=== PATIENT | female | born 1960 | race Caucasian/White ===

== ENCOUNTER → 2016-06-22 | Outpatient (REF) | payer BC ==
[~2016-06-22] MED LIST: 8 HO650T PO; AUGM875T27 PO; COUM2.5T11 PO; DOCU10CA PO; FISH1000 PO; FLAG500T PO; GLUC500C5 PO; HYDR-3713 PO; LORT5TAB PO; NAPR500T2 PO; OMEP40CA2 PO; PERCOCET PO; TRAM50TA2 PO; VITATAB11 PO; ZOFR20TA PO
[2016-06-22 12:18] LABS: ALBUMIN 3.8 GM/DL (3.2-5.2); ALBUMIN/GLOBULIN RATIO 1.19 (1.00-1.93); ALKALINE PHOSPHATASE 149 U/L (45-117); ALT/SGPT 31 U/L (12-78); ANION GAP 7 MEQ/L (8-16); AST/SGOT 17 U/L (15-37); BILIRUBIN,TOTAL 0.5 MG/DL (0.2-1.0); BLOOD UREA NITROGEN 25 MG/DL (7-18); CARBON DIOXIDE LEVEL 28 MEQ/L (21-32); CHLORIDE LEVEL 107 MEQ/L (98-107); CHOLESTEROL LEVEL 212 MG/DL (<200); CREATININE FOR GFR 0.75 MG/DL (0.55-1.02); GLOMERULAR FILTRATION RATE > 60.0 (>51); GLUCOSE, FASTING 144 MG/DL (70-105); POTASSIUM SERUM 4.6 MEQ/L (3.5-5.1); SODIUM LEVEL 142 MEQ/L (136-145); TRIGLYCERIDES LEVEL 190 MG/DL (<150)
[2016-06-22 12:34] LABS: BASO % 0.6 % (0.0-1.0); EOS # 0.1 K/mm3 (0.0-0.50); EOS % 1.8 % (0.0-3.0); LARGE UNSTAINED CELL # 0.1 K/mm3 (0.0-0.4); LARGE UNSTAINED CELL % 1.3 % (0.0-4.0); LYMPH # 1.8 K/mm3 (1.5-4.5); LYMPH % 30.7 % (24.0-44.0); MEAN CORPUSCULAR HEMOGLOBIN 29.3 pg (27.0-33.0); MEAN CORPUSCULAR HGB CONC 33.8 g/dl (32.0-36.5); MEAN CORPUSCULAR VOLUME 86.8 fl (80.0-96.0); MONO # 0.3 K/mm3 (0.0-0.8); MONO % 5.3 % (0.0-5.0); NEUTROPHILS # 3.4 K/mm3 (1.8-7.7); NEUTROPHILS % 60.3 % (36.0-66.0); PLATELET COUNT, AUTOMATED 237 k/mm3 (150-450); RED CELL DISTRIBUTION WIDTH 12.9 % (11.5-14.5); WHITE BLOOD COUNT 5.6 K/mm3 (4.0-10.0)
== END ==
LOC: M LABDRAW1 11:33
PROVIDERS: ATTEND Physician Assistant Medical
DX: K21.9 Gastro-esophageal reflux disease without esophagitis (principal); E78.4 Other hyperlipidemia; E55.9 Vitamin D deficiency, unspecified

== ENCOUNTER → 2016-07-21 | Outpatient (CLI) | payer BC ==
--- NOTE | 2016-07-21 14:18 | REP ---
DIGITAL DIAGNOSTIC BILATERAL MAMMOGRAPHY WITH CAD AND FOCUSED LEFT BREAST SONOGRAPHY: HISTORY: Left breast lump for the last 1-1/2 months with some tenderness 2-o'clock position 3 cm from the nipple. Comparison mammography is from March 14, 2015, January 01, 2014, and December 28, 2011. MAMMOGRAPHIC FINDINGS: A skin marker is affixed to the skin at the site of the palpable lump. Routine left breast views are augmented by magnified focal spot compression CC, MLO and true MLO views. These views demonstrate that breast parenchyma remains homogeneously and completely fat replaced bilaterally. No density or mass lesion is seen in the area of the palpable lump on the left or elsewhere on either side mammographically. No microcalcification or worrisome skin change is appreciated. No change from comparison mammography. SONOGRAPHIC FINDINGS: The left breast is scanned from 1-o'clock position to 3-o'clock position with the palpable lump at 2-o'clock position. Mildly heterogeneous fibroglandular background echotexture is seen. No cyst or mass is observed by ultrasound. No acoustic shadowing is seen. IMPRESSION: BIRADS category 1 negative bilateral breast imaging. This negative report should not dissuade one from biopsy of a palpable mass depending on its clinical characteristics. Clinical follow-up is recommended. BI-RADS/ACR category 1 mammogram. Negative. Routine annual screening mammography (for women over age 40). This mammogram was interpreted with the aid of an FDA-approved computer-aided detection system. The patient states she/he had a clinical breast exam in June 2016. The patient letter being requested is M2. Signed by Carlos Espana MD 07/21/2016 03:49 P
== END ==
LOC: M RAD 10:32
PROVIDERS: ATTEND Nurse Practitioner Family
DX: N63 Unspecified lump in breast (principal)
CPT/HCPCS: 76642; G0204

== ENCOUNTER → 2016-10-05 | Outpatient (CLI) | payer BC ==
[~2016-10-05] MED LIST changes: -8 HO650T PO; +8 HO650T2 PO; -AUGM875T27 PO; +AUGM875T28 PO; +COLA100C5 PO; +COUM1TAB17 PO; -COUM2.5T11 PO; +COUM2.5T17 PO; +DRIS50002 PO; -NAPR500T2 PO; +NAPR500T3 PO; +PERC5TAB12 PO; +TOLT1TAB; +TYLE500T78 PO
[2016-10-05 12:33] LABS: INR 0.94; MEAN CORPUSCULAR HEMOGLOBIN 30.1 pg (27.0-33.0); MEAN CORPUSCULAR HGB CONC 35.2 g/dl (32.0-36.5); MEAN CORPUSCULAR VOLUME 85.5 fl (80.0-96.0); WHITE BLOOD COUNT 6.6 K/mm3 (4.0-10.0)
--- NOTE | 2016-10-05 12:51 | REP ---
PA and lateral chest: Comparison is 11/20/2015. The lung sullivan are clear. The cardiac size is normal The linda, mediastinum, and bony thorax are unremarkable. Impression: Negative PA and lateral chest. There is no interval change. Signed by Ángel Alfaro MD 10/05/2016 12:42 P
[2016-10-05 13:17] LABS: ALBUMIN 4.2 GM/DL (3.2-5.2); ALBUMIN/GLOBULIN RATIO 1.27 (1.00-1.93); ALKALINE PHOSPHATASE 165 U/L (45-117); ALT/SGPT 43 U/L (12-78); ANION GAP 8 MEQ/L (8-16); AST/SGOT 18 U/L (15-37); BILIRUBIN,TOTAL 0.5 MG/DL (0.2-1.0); BLOOD UREA NITROGEN 19 MG/DL (7-18); CALCIUM LEVEL 10.5 MG/DL (8.5-10.1); CARBON DIOXIDE LEVEL 28 MEQ/L (21-32); CHLORIDE LEVEL 104 MEQ/L (98-107); CREATININE FOR GFR 0.88 MG/DL (0.55-1.02); GLOMERULAR FILTRATION RATE > 60.0 (>51); GLUCOSE, FASTING 85 MG/DL (70-105); POTASSIUM SERUM 4.4 MEQ/L (3.5-5.1); SODIUM LEVEL 140 MEQ/L (136-145); TOTAL PROTEIN 7.5 GM/DL (6.4-8.2)
--- NOTE | 2016-10-06 22:34 | ECGEPIP ---
Stationary ECG Study [facility] Test Date: 2016-10-05 Pat Name: NICA ZAPATA Department: Room: - Gender: F Beam Dyer Recessed Vat: SAMANTHA : 1960 Requested By: Fidencio Lyons Order Number: [id number] Reading MD: Raji Garduno Measurements Intervals [place] Rate: 59 P: 64 RI: 171 QRS: 2 QRSD: 115 T: 30 QT: 404 QTc: 401 Interpretive Statements SINUS BRADYCARDIA MODERATE INTRAVENTRICULAR CONDUCTION DELAY LAST TRACING ON 11/06/2015 AT 11:46:42, NO SIGNIFICANT CHANGES BUT SLOWER HEART RATE Electronically Signed On 10-06-2016 22:34:08 EDT by Raji Garduno
== END ==
LOC: M ADMPAT 10:20
PROVIDERS: ATTEND Orthopaedic Surgery
DX: M16.12 Unilateral primary osteoarthritis, left hip (principal)

== ENCOUNTER → 2016-10-12 | Outpatient (REF) | payer BC ==
[2016-10-12 20:32] LABS: ANION GAP 8 MEQ/L (8-16); BLOOD UREA NITROGEN 22 MG/DL (7-18); CALCIUM LEVEL 9.5 MG/DL (8.5-10.1); CARBON DIOXIDE LEVEL 28 MEQ/L (21-32); CHLORIDE LEVEL 108 MEQ/L (98-107); CREATININE FOR GFR 0.82 MG/DL (0.55-1.02); GLOMERULAR FILTRATION RATE > 60.0 (>51); GLUCOSE, FASTING 131 MG/DL (70-105); POTASSIUM SERUM 4.2 MEQ/L (3.5-5.1); SODIUM LEVEL 144 MEQ/L (136-145)
== END ==
LOC: M SFHCADAM 14:17
PROVIDERS: ATTEND Physician Assistant Medical
DX: Z01.818 Encounter for other preprocedural examination (principal)

== ENCOUNTER 2016-10-18 07:31 | Inpatient (IN) | payer BC ==
[2016-10-05 11:17] VITALS: BP 120/86
--- NOTE | 2016-10-15 10:46 | HPE ---
DATE OF ADMISSION: 10/18/2016 ATTENDING PHYSICIAN: Fidencio Lyons MD CHIEF COMPLAINT: Left hip pain and stiffness. HISTORY OF PRESENT ILLNESS: This is a pleasant 56-year-old female patient with progressively worsening left hip pain and stiffness. She has failed to improve with conservative management. She has had a prior right hip replacement that did well and she has elected for surgery for her left hip for her persistent symptoms. She has consented for a left total hip arthroplasty by Dr. Lyons. Medical optimization pending. ALLERGIES: No known drug allergies. CURRENT MEDICATIONS: - Lidoderm topical patch - tramadol 50 mg as needed for pain - naproxen 500 mg one tablet as needed. She will discontinue that 5 days prior to her surgery. - Prilosec 40 mg one tablet once per day - vitamin B complex - glucosamine - fish oil - Detrol 1 mg one tablet once per day MEDICAL HISTORY: Includes: 1. Symptomatic osteoarthritis of her left hip. 2. Gastric reflux disease. 3. Urinary incontinence. SURGICAL HISTORY: 1. She has had a . 2. Gallbladder removed. 3. A prior right total hip arthroplasty. FAMILY HISTORY: Heart disease, cancer, elevated cholesterol, diabetes, arthritis and thyroid disease. SOCIAL HISTORY: She does not smoke. She does not use alcohol. REVIEW OF SYSTEMS: Denies fever or chills. Denies chest pain, shortness of breath or cough. Denies difficulty breathing. Denies recent upper respiratory infection (URI) or urinary tract infection (UTI) symptoms. Denies nausea or vomiting, and has persistent pain in her left hip with weightbearing activities and activities of daily living. PHYSICAL EXAMINATION: Exam today reveals a well-nourished, well-developed alert female patient. She walks with a limp in gait, favoring the left side. She uses a cane for ambulation. Exam of the left hip reveals skin to be intact. No erythema, edema or ecchymosis. Irritability with left hip range of motion. Straight leg raise testing is negative. There is tenderness diffusely around the left hip. She is able to appreciate light touch in the left lower extremity. Neck is supple without adenopathy or JVD. Lungs are clear to auscultation without rales or wheeze. Heart regular rate and rhythm. Abdomen bowel sounds are present. Current vital signs: Blood pressure 124/82, pulse 80, respirations 16, temperature 98.6, weight 230 pounds, height 64 inches. LABORATORY DATA: WBC count of 6.6, RBC count of 4.6, hemoglobin 14.0, hematocrit 39.7, PT 12.6, INR 0.99, glucose 85, BUN 19, creatinine 0.88, sodium 140, potassium 4.4. Urine culture no growth. Nasal sinus culture normal joo. Sed rate of 24. UA urinalysis within normal limits. Chest x-ray no acute cardiopulmonary disease process noted. EKG sinus bradycardia. IMPRESSION: Symptomatic osteoarthritis of her left hip. PLAN: Consented for left total hip arthroplasty by Dr. Lyons.
[~2016-10-18] VITALS: Ht 162.6 cm; Wt 106.6 kg
[~2016-10-18 07:31] MED LIST changes: -COUM1TAB17 PO; -PERC5TAB12 PO; -TOLT1TAB; -TYLE500T78 PO
[2016-10-18] MEDS ORDERED: LR 1,000 ML IV SCH ×2 (07:45→12:45)
[2016-10-18] MEDS ORDERED: LR 1,000 ML IV ONE (07:45)
[2016-10-18] MEDS ORDERED: TYLE500T78 PO (08:11)
[2016-10-18] MEDS ORDERED: COUM1TAB17 PO (08:11)
[2016-10-18] MEDS ORDERED: TOLT1TAB (08:11)
[2016-10-18] MEDS ORDERED: fentaNYL 100 MCG/2 ML INJECTION (J3010) As Ordered ONE ×2 (09:28→11:04)
[2016-10-18] MEDS ORDERED: MIDAZOLAM INJ 2 MG/2 ML VIAL (J2250) As Ordered ONE ×2 (09:29→10:41)
[2016-10-18] MEDS ORDERED: ceFAZolin 1GM INJ (J0690) As Ordered ONE (09:43)
[2016-10-18] MEDS ORDERED: TRANEXAMIC ACID 100 MG/ML 10ML VIAL As Ordered ONE (09:43)
[2016-10-18] MEDS ORDERED: EPINEPHrine INJ 1 MG/ML 1ML AMP As Ordered ONE (09:44)
--- NOTE | 2016-10-18 09:45 | IPN ---
DATE: 10/18/2016 The patient seen, examined and she wished to go ahead with a left total hip arthroplasty. She has been through a right in the past. She understands the nature of the procedure, the risks of bleeding, infection, damage to nerves, vessels, persistent pain, wear loosening, dislocation, blood clots, leg length inequality, medical problems, , among others. Preop clearance has been obtained.
[2016-10-18] MEDS ORDERED: ONDANSETRON 4MG/2ML VIAL (J2405) As Ordered ONE (10:45)
[2016-10-18] MEDS ORDERED: ePHEDrine SULFATE 25 MG/5 ML(5MG/ML) SYRINGE As Ordered ONE ×2 (10:45→11:03)
[2016-10-18] MEDS ORDERED: LIDOCAINE 2% INJ 100 MG/5 ML SDV (FOR ANES.) As Ordered ONE (10:45)
[2016-10-18] MEDS ORDERED: PROPOFOL 200 MG/20 ML VIAL As Ordered ONE (10:45)
[2016-10-18] MEDS ORDERED: PHENYLephrine HCL 500 MCG/5 ML (100MCG/ML) SYRINGE (J2370) As Ordered ONE (11:20)
[2016-10-18] MEDS ORDERED: HYDROmorphone HCL 2 MG/ML 1ML VIAL (J1170) As Ordered ONE (11:33)
[2016-10-18] MEDS ORDERED: MORPHINE 1MG/ML IN 0.9% NACL 100ML IV BAG As Ordered ONE (11:53)
[2016-10-18] MEDS ORDERED: PERCOCET 5MG/325MG TAB As Ordered ONE (12:40)
[2016-10-18] MEDS ORDERED: fentaNYL 100 MCG/2 ML INJECTION (J3010) IV PRN (12:45)
[2016-10-18] MEDS ORDERED: FLEET ENEMA PR PRN (12:45)
[2016-10-18] MEDS ORDERED: MORPHINE 2 MG/ML 1ML SYRINGE IV PRN (12:45)
[2016-10-18] MEDS ORDERED: EPIDURAL/PCA KEYS XX PRN (12:45)
[2016-10-18] MEDS ORDERED: MORPHINE 1MG/ML IN 0.9% NACL 100ML IV BAG IV PRN (12:45)
[2016-10-18] MEDS ORDERED: ACETAMINOPHEN TAB 650MG DOSE (2X325MG) PO PRN (12:45)
[2016-10-18] MEDS ORDERED: METOCLOPRAMIDE INJ 10MG/2ML VIAL (J2765) IV PRN (12:45)
[2016-10-18] MEDS ORDERED: PERCOCET 5MG/325MG TAB PO PRN (12:45)
[2016-10-18] MEDS ORDERED: ONDANSETRON 4MG/2ML VIAL (J2405) IV PRN ×3 (12:45)
[2016-10-18] MEDS ORDERED: diphenhydrAMINE INJ 50MG/ML VIAL (J1200) IV PRN (12:45)
[2016-10-18] MEDS ORDERED: NALBUPHINE HCL 10 MG/ML AMP (J2300) IV PRN (12:45)
[2016-10-18] MEDS ORDERED: NALOXONE INJ 0.4 MG/1 ML VIAL (J2310) IV PRN (12:45)
--- NOTE | 2016-10-18 12:48 | IPNPDOC ---
Subjective Date Seen The patient was seen on 10/18/16. Subjective Chief Complaint/HPI The patient is a 56-year-old female admitted with a reason for visit of Arthritis Left Hip. Events since last encounter No complaint of chest pain, not short of breath, hip pain controlled, does not want to be in hospital very long Pulmonary: Denies: Dyspnea, Cough Cardiovascular: Denies: Chest Pain Gastrointestinal: Denies: Nausea, Vomiting, Abdominal Pain Objective Physical Examination General Exam: Positive: Alert, Cooperative, No Acute Distress ENT Exam: Positive: Mucous membr. moist/pink Chest Exam: Positive: Clear to auscultation, Diminished Heart Exam: Positive: Rate Normal, Regular Rhythm, Normal S1, Normal S2 Abdomen Exam: Positive: BS Hypoactive, Soft, Negative: Tenderness Extremity Exam: Negative: Edema Assessment /Plan Problems (1) Osteoarthritis of left hip Status: Acute Problem Text: Pain management, dvt prophylaxis, gi regimen, activity, PT, discharge per ortho (2) Overactive bladder Status: Chronic Problem Text: continue detrol (3) GERD (gastroesophageal reflux disease) Problem Text: with hiatal hernia continue ppi (4) Morbid obesity with BMI of 40.0-44.9, adult Status: Chronic Problem Text: complicates care (5) Hyperlipemia Problem Text: on fish oil, not on statin Plan/VTE VTE Prophylaxis Ordered?: Yes (per ortho) VS, I&O, 24H, Fishbone Vital Signs/I&O Vital Signs Date Time Temp Pulse Resp B/P (MAP) Pulse Ox O2 Delivery O2 Flow Rate FiO2 10/18/16 12:00 73 16 112/58 (76) 100 Nasal Cannula 3 10/18/16 11:47 97.2 JENNIFER BAUTISTA MD Oct 18, 2016 12:48
[2016-10-18] MEDS: LR 1,000 ML IV SCH (13:25)
[2016-10-18] MEDS ORDERED: WARFARIN SOD 5 MG TAB PO ONE (17:00)
[2016-10-18 20:00] VITALS: BP 122/62; O2SAT 95
[2016-10-19] VITALS: BP 116/58
[2016-10-19] MEDS: LR 1,000 ML IV SCH (01:34)
[2016-10-19 04:00] VITALS: BP 122/68
[2016-10-19 07:37] LABS: MEAN CORPUSCULAR HEMOGLOBIN 30.2 pg (27.0-33.0); MEAN CORPUSCULAR HGB CONC 35.1 g/dl (32.0-36.5); MEAN CORPUSCULAR VOLUME 86.1 fl (80.0-96.0); RED CELL DISTRIBUTION WIDTH 12.7 % (11.5-14.5); WHITE BLOOD COUNT 7.2 K/mm3 (4.0-10.0)
[2016-10-19 07:42] LABS: INR 1.12
[2016-10-19] MEDS: MIRALAX *UNIT DOSE* 17GM PACKET PO SCH (10:58)
[2016-10-19] MEDS: SENOKOT S TAB PO SCH ×2 (10:58→21:06)
[2016-10-19] MEDS: ONDANSETRON 4 MG TAB (S0181) PO PRN ×2 (10:58→17:59)
[2016-10-19] MEDS: MOM 30ML SUSPENSION UDC PO SCH (10:58)
[2016-10-19] MEDS: PERCOCET 5MG/325MG TAB PO PRN ×3 (10:58→21:52)
--- NOTE | 2016-10-19 13:13 | REP ---
LEFT HIP: Two views. HISTORY: Check placement. FINDINGS: AP and lateral views of the left hip demonstrate left hip arthroplasty in good position. Lateral skin levi are seen. IMPRESSION: Status post left hip arthroplasty. Signed by Carlos Espana MD 10/19/2016 02:55 P
[2016-10-19 14:00] VITALS: BP 124/66
[2016-10-19] MEDS ORDERED: WARFARIN SOD 5 MG TAB PO ONE (17:00)
--- NOTE | 2016-10-19 17:12 | RO ---
DATE OF PROCEDURE: 10/18/2016 PREOPERATIVE DIAGNOSIS: Left hip osteoarthritis. POSTOPERATIVE DIAGNOSIS: Left hip osteoarthritis. PROCEDURE: Left total hip arthroplasty using a [place] size 5 standard stem +5 neck 36 ball and a 54 cup. SURGEON: Dr. Fidencio Lyons [employer] ASSEMBLER: Wally Desir ANESTHESIA: Spinal. ESTIMATED BLOOD LOSS: 200 COMPLICATIONS: None. INDICATIONS: This is a 56-year-old morbidly obese woman who has significant obesity around her hips that wished to go ahead with a ahead with a hip replacement due to advanced arthritis. She had failed conservative management. She understood the nature of the procedure the risks of bleeding, infection, damage to nerves, vessels, persistent pain, wear loosening, dislocation, blood clots, medical problems, , leg length inequality, among others. PROCEDURE: The patient taken to the operating room and placed in right lateral decubitus position after spinal anesthesia was induced. The left hip was then prepped and draped in usual sterile fashion. We had placed on the [place] positioner and padded all areas appropriately. After the left hip was prepped and draped a time-out was performed. I created a longitudinal incision over the lateral aspect the hip and sharply dissected down through copious adipose tissue. I then identified the fascia diana and this was incised longitudinally, exposing the abductors. I then divided the anterior 40% of the abductors off this was relatively difficult. She already had some avulsion of her abductors but her obesity and the depth of the wound made this significantly more challenging. I dissected off the anterior aspect of the neck and down along the calcar and were able to dislocate the hip at this point. She did have a pretty shallow acetabulum. The canal initiating regular reamer was then used on the femoral side followed by the canal finding reamer lateralizing reamer and I reamed up to initially to a 4 but that this did not have very good purchase so I had reamed up to a size 5 and this is what was templated preoperatively even though she had a 4 on the other side. I then cut the neck off at about three-quarters of a fingerbreadth up from the lesser trochanter and removed the ball. Then used anterior posterior tractors removed soft tissue from around the acetabulum. There was significant inferior soft tissue and intermittent bleeding and this process took quite a bit longer than usual due to this excess tissue and the depth of the wound. Finally I was able to get this cleaned off and controlled hemostasis. We then sequentially reamed up to a size 53 reamer which had good bleeding bone and good concentric reaming. I was able to medialized this because she did have somewhat of a shallow acetabulum. I then placed the 54 cup, I did have a little bit of trouble getting it seated and I did have to remove a little bit more soft tissue inferiorly to get this seated but eventually was able to get it very well seated and a very stable cup. Arthur hole eliminator was placed. I had irrigated multiple times prior to this. I again irrigated now and placed the polyethylene. I chose a 36 54 for added stability. Once the liner was impacted in place, I made sure it was well seated. We directed attention back to the femur. The [place] cutter was used proximally. I then broached up to a size 5 which fit very nicely. We did trial with a 1.5 standard and the 5 standard and the 5 seemed to be the most appropriate. There was minimal shuck in full extension. Good flexion but the thigh impinged on her pannus. There was no impingement internally. There was excellent internal rotation. No instability. Good flexion, external rotation without any instability. I then removed the trial components inserted the actual size 5 standard a [place] stem after irrigating and impacted down. No fracture was noted. I placed the actual ball and impacted in place over a dry taper. Then reduced the hip of the cashier assistant's help, put the hip through range of motion again. Very pleased with stability and range of motion. I then irrigated copiously, repaired the minimus #1 Vicryl suture. The TXA solution was placed and we closed the deep layer with #1 Vicryl sutures with a couple stitches being placed through the bone. Excellent repair was noted. I then repaired the fascia diana with interrupted #1 Vicryl suture and then the Stratafix suture was used starting at the midportion of worked in opposite directions closing this watertight. Irrigated again closed subcu with 2-0 Vicryl. The skin with levi. Sterile dressing was applied. She was taken to recovery room in stable condition. No known complications. The cashier assistant was instrumental in holding retractors and assisting in reducing and dislocating the hip and assisting in wound closure. This is coded as unusually difficult case because of the patient's significant morbid obesity and significant adipose tissue around her hips and which made this whole procedure technically quite a bit more challenging.
[2016-10-19 22:00] VITALS: BP 133/66
[2016-10-20] MEDS: PERCOCET 5MG/325MG TAB PO PRN ×2 (03:07→08:41)
[2016-10-20 06:00] VITALS: BP 128/70
[2016-10-20 06:37] LABS: MEAN CORPUSCULAR HEMOGLOBIN 30.3 pg (27.0-33.0); MEAN CORPUSCULAR HGB CONC 34.4 g/dl (32.0-36.5); MEAN CORPUSCULAR VOLUME 87.9 fl (80.0-96.0); RED CELL DISTRIBUTION WIDTH 12.8 % (11.5-14.5); WHITE BLOOD COUNT 9.3 K/mm3 (4.0-10.0)
[2016-10-20 06:56] LABS: INR 1.31
[2016-10-20] MEDS: SENOKOT S TAB PO SCH (08:41)
[2016-10-20] MEDS: MOM 30ML SUSPENSION UDC PO SCH (08:41)
[2016-10-20] MEDS: MIRALAX *UNIT DOSE* 17GM PACKET PO SCH (08:41)
[2016-10-20] MEDS ORDERED: PERC5TAB12 PO (09:02)
[2016-10-20] MEDS ORDERED: COUM2.5T17 PO (09:02)
--- NOTE | 2016-10-23 12:14 | DSES ---
DATE OF ADMISSION: 10/18/2016 DATE OF DISCHARGE: 10/20/2016 ATTENDING PHYSICIAN: Dr. Fidencio Lyons ADMITTING DIAGNOSIS: Left hip osteoarthritis. OTHER DIAGNOSES: 1. Gastroesophageal reflux disease (GERD). 2. Urinary incontinence. DISCHARGE DIAGNOSIS: Left hip osteoarthritis, status post left total hip arthroplasty. HISTORY OF PRESENT ILLNESS: The patient is a 56-year-old female with progressively worsening left hip pain and stiffness. She failed to improved with conservative measures so she elected for an elective left total hip arthroplasty with Dr. Lyons. OPERATION PERFORMED: Left total hip arthroplasty. HOSPITAL COURSE: The patient underwent a left total hip arthroplasty under spinal anesthesia which was uneventful. Her hospital course was without complication and she was up with physical therapy per their protocol, weightbearing as tolerated on the left lower extremity. She was discharged on oral pain medications and will resume his preoperative medications and diet. She will take her Coumadin and use her thromboembolic-deterrent stockings for 30 days postoperatively to prevent deep vein thrombosis. She will followup in our office in 12-14 days for a wound check and staple removal. She is encouraged to contact our office sooner if there is any increased pain, drainage, bleeding, redness, numbness and tingling in the extremity, fever greater than 101 degrees, or any other concerns. Please see medical record for additional details. NATALIA
== END 2016-10-20 11:40 | disposition home health service (06) | DRG 301 ==
LOC: M OR 07:31 → M MS5PR 13:25
PROVIDERS: ADMIT Orthopaedic Surgery; ATTEND Orthopaedic Surgery
PROC: 0SRB02Z Replacement of Left Hip Joint with Metal on Polyethylene Synthetic Substitute, Open Approach (ICD-10-PCS; principal; 2016-10-18 09:30)
DX: M16.12 Unilateral primary osteoarthritis, left hip (principal); E66.01 Morbid (severe) obesity due to excess calories; Z68.41 Body mass index [BMI] 40.0-44.9, adult; K21.9 Gastro-esophageal reflux disease without esophagitis; Z79.899 Other long term (current) drug therapy; Z96.641 Presence of right artificial hip joint; E78.5 Hyperlipidemia, unspecified

== ENCOUNTER → 2016-10-25 | Outpatient (REF) | payer BC ==
[~2016-10-25] MED LIST changes: +COUM1TAB17 PO; +PERC5TAB12 PO; +TOLT1TAB; +TYLE500T78 PO
[2016-10-25 11:16] LABS: INR 1.48
== END ==
LOC: M LAB REF 10:59 → M SHH 10:59
PROVIDERS: ATTEND Nurse Practitioner Family
DX: Z79.01 Long term (current) use of anticoagulants (principal)

== ENCOUNTER → 2016-10-28 | Outpatient (REF) | payer BC ==
[2016-10-28 15:30] LABS: INR 1.44
== END ==
LOC: M LAB REF 10:55
PROVIDERS: ATTEND Nurse Practitioner Family
DX: Z51.81 Encounter for therapeutic drug level monitoring (principal); Z79.01 Long term (current) use of anticoagulants

== ENCOUNTER → 2016-11-04 | Outpatient (REF) | payer BC ==
[2016-11-04 13:33] LABS: INR 2.05
== END ==
LOC: M LABDRAW1 11:14
PROVIDERS: ATTEND Orthopaedic Surgery
DX: Z47.1 Aftercare following joint replacement surgery (principal)

== ENCOUNTER → 2016-11-08 | Outpatient (REF) | payer BC ==
[2016-11-08 12:05] LABS: INR 1.64
== END ==
LOC: M SHH 11:27
PROVIDERS: ATTEND Nurse Practitioner Family
DX: Z51.81 Encounter for therapeutic drug level monitoring (principal); Z79.01 Long term (current) use of anticoagulants

== ENCOUNTER → 2017-06-10 | Outpatient (REF) | payer BC ==
[2017-06-10 11:30] LABS: ESTIMATED AVERAGE GLUCOSE 137 MG/DL (60-110); HEMOGLOBIN A1c 6.4 %
[2017-06-10 11:40] LABS: ALBUMIN 3.9 GM/DL (3.2-5.2); ALBUMIN/GLOBULIN RATIO 1.11 (1.00-1.93); ALKALINE PHOSPHATASE 128 U/L (45-117); ALT/SGPT 59 U/L (12-78); ANION GAP 6 MEQ/L (8-16); AST/SGOT 23 U/L (7-37); BILIRUBIN,TOTAL 0.6 MG/DL (0.2-1.0); BLOOD UREA NITROGEN 18 MG/DL (7-18); CALCIUM LEVEL 9.7 MG/DL (8.5-10.1); CARBON DIOXIDE LEVEL 27 MEQ/L (21-32); CHLORIDE LEVEL 109 MEQ/L (98-107); CHOLESTEROL LEVEL 198 MG/DL (<200); CREATININE FOR GFR 0.92 MG/DL (0.55-1.30); GLOMERULAR FILTRATION RATE > 60.0 (>51); GLUCOSE, FASTING 142 MG/DL (70-100); HDL CHOLESTEROL 36 MG/DL (>40); LDL CHOLESTEROL 136.2 MG/DL (<100); NON-HDL-C 162 MG/DL; POTASSIUM SERUM 4.6 MEQ/L (3.5-5.1); SODIUM LEVEL 142 MEQ/L (136-145); TOTAL PROTEIN 7.4 GM/DL (6.4-8.2); TRIGLYCERIDES LEVEL 129 MG/DL (<150)
== END ==
LOC: M LABDRAW1 10:47
DX: E55.9 Vitamin D deficiency, unspecified (principal); R73.01 Impaired fasting glucose
CPT/HCPCS: 84443

== ENCOUNTER → 2017-09-30 | Outpatient (CLI) | payer BC | LOC: M WHC 13:31 | DX: Z12.31 Encounter for screening mammogram for malignant neoplasm of breast (principal) | CPT/HCPCS: 77067 ==

== ENCOUNTER → 2017-12-04 | Outpatient (REF) | payer BC ==
[2017-12-04 18:52] LABS: BASO % 0.7 % (0.0-1.0); EOS # 0.1 10^3/uL (0.0-0.50); EOS % 1.9 % (0.0-3.0); HEMATOCRIT 41.5 % (36.0-47.0); IMMATURE GRANULOCYTE % 0.4 % (0-3.0); LYMPH # 2.1 10^3/uL (1.5-4.5); LYMPH % 36.4 % (24.0-44.0); MEAN CORPUSCULAR HEMOGLOBIN 30.8 pg (27.0-33.0); MEAN CORPUSCULAR HGB CONC 33.7 g/dl (32.0-36.5); MEAN CORPUSCULAR VOLUME 91.4 fl (80.0-96.0); MONO # 0.3 10^3/uL (0.0-0.8); MONO % 5.1 % (0.0-5.0); NEUTROPHILS # 3.2 10^3/uL (1.8-7.7); NEUTROPHILS % 55.5 % (36.0-66.0); PLATELET COUNT, AUTOMATED 215 10^3/uL (150-450); RED BLOOD COUNT 4.54 10^6/uL (4.00-5.40); RED CELL DISTRIBUTION WIDTH 12.6 % (11.5-14.5); WHITE BLOOD COUNT 5.7 10^3/uL (4.0-10.0)
[2017-12-04 19:09] LABS: ALBUMIN 3.8 GM/DL (3.2-5.2); ALBUMIN/GLOBULIN RATIO 1.23 (1.00-1.93); ALKALINE PHOSPHATASE 126 U/L (45-117); ALT/SGPT 33 U/L (12-78); ANION GAP 7 MEQ/L (8-16); AST/SGOT 13 U/L (7-37); BILIRUBIN,TOTAL 0.4 MG/DL (0.2-1.0); BLOOD UREA NITROGEN 16 MG/DL (7-18); CALCIUM LEVEL 9.5 MG/DL (8.5-10.1); CARBON DIOXIDE LEVEL 26 MEQ/L (21-32); CHLORIDE LEVEL 111 MEQ/L (98-107); CHOLESTEROL LEVEL 234 MG/DL (<200); CHOLESTEROL RISK RATIO 5.318 (<5); CREATININE FOR GFR 0.88 MG/DL (0.55-1.30); GLOMERULAR FILTRATION RATE > 60.0 (>51); GLUCOSE, FASTING 138 MG/DL (70-100); HDL CHOLESTEROL 44 MG/DL (>40); LDL CHOLESTEROL 169 MG/DL (<100); NON-HDL-C 190 MG/DL; POTASSIUM SERUM 4.5 MEQ/L (3.5-5.1); SODIUM LEVEL 144 MEQ/L (136-145); TOTAL PROTEIN 6.9 GM/DL (6.4-8.2); TRIGLYCERIDES LEVEL 106 MG/DL (<150)
[2017-12-04 19:15] LABS: ESTIMATED AVERAGE GLUCOSE 123 MG/DL (60-110); HEMOGLOBIN A1c 5.9 %
[2017-12-04 19:18] LABS: CREATININE, URINE 87.8 MG/DL; MALB URINE SIEMENS < 5.0 MG/L
[2017-12-04 19:31] LABS: MAU/CREAT RATIO 5.7 MCG/MG (0.0-30.0)
[2017-12-05 10:58] LABS: TOTAL 25(OH) VITAMIN D 44.2 NG/ML (30.0-100.0)
== END ==
LOC: M SFHCWAGY 08:04
DX: E11.9 Type 2 diabetes mellitus without complications (principal); E78.49 Other hyperlipidemia; E55.9 Vitamin D deficiency, unspecified
CPT/HCPCS: 80053

== ENCOUNTER → 2018-11-28 | Outpatient (CLI) | payer BC ==
[~2018-11-28] MED LIST changes: -DRIS50002 PO; +DRIS50003 PO; +NAPR-885 PO; -NAPR500T3 PO; -TOLT1TAB; +TOLT60TA; -ZOFR20TA PO; +ZOFR4TAB16 PO
--- NOTE | 2018-11-28 16:07 | REPMRS ---
Patient History The patient states she had a clinical breast exam in 11/2018. Family history of breast cancer at age 50 or over in maternal grandmother, colorectal cancer in maternal uncle, breast cancer at age 84 in mother. No Hormone Replacement Therapy 3D TOMOSYNTHESIS WAS PERFORMED. Digital Woman Screen Mammo: November 28, 2018 - Exam #: [id number] Bilateral CC and MLO view(s) were taken. Technologist: Chantal Pedersen, Technologist Prior study comparison: September 30, 2017, bilateral digital woman screen mammo performed at [facility]. July 21, 2016, digital mammo diagnostic bilateral, performed at [facility]. FINDINGS: There are scattered fibroglandular densities. There has been no change in the appearance of the mammogram from the prior studies. There is a mild amount of residual fibroglandular tissue which is fairly symmetric. There is no interval development of dominant mass, architectural distortion, or clustered microcalcification suggestive of malignancy. Assessment: BI-RADS/ACR category 1 mammogram. Negative Mammogram. Recommendation Routine screening mammogram in 1 year (for women over age 40). This mammogram was interpreted with the aid of an FDA-approved computer-aided dectection system. THE LIFETIME RISK OF BREAST CANCER IS 20.8%, THEREFORE SUPPLEMENTAL SCREENING MRI OF THE BREASTS IS RECOMMENDED IN 6 MONTHS. Electronically Signed By: Ángel Perera MD 11/28/18 [id number]
== END ==
LOC: M WHC 13:32
PROVIDERS: ATTEND Nurse Practitioner Family
DX: Z12.31 Encounter for screening mammogram for malignant neoplasm of breast (principal)

== ENCOUNTER → 2018-11-28 | Outpatient (REF) | payer OTHER ==
[2018-11-30 14:07] LABS: HPV HYBRID CAPTURE II Negative (Negative)
== END ==
LOC: M SFHCWAGY 16:03
PROVIDERS: ATTEND Nurse Practitioner Family
DX: Z12.4 Encounter for screening for malignant neoplasm of cervix (principal); R87.610 Atypical squamous cells of undetermined significance on cytologic smear of cervix (ASC-US)
CPT/HCPCS: 87624; G0123

== ENCOUNTER → 2019-01-06 | Outpatient (CLI) | payer OTHER ==
[~2019-01-06] MED LIST changes: -OMEP40CA2 PO; +OMEP40CA97 PO
[2019-01-06 12:33] LABS: BASO # 0.1 10^3/uL (0.0-0.2); BASO % 0.8 % (0.0-1.0); EOS # 0.1 10^3/uL (0.0-0.5); EOS % 1.9 % (0.0-3.0); HEMATOCRIT 42.7 % (36.0-47.0); HEMOGLOBIN 14.6 g/dl (12.0-15.5); LYMPH # 2.4 10^3/uL (1.5-5.0); LYMPH % 39.4 % (24.0-44.0); MEAN CORPUSCULAR HEMOGLOBIN 30.5 pg (27.0-33.0); MEAN CORPUSCULAR HGB CONC 34.2 g/dl (32.0-36.5); MEAN CORPUSCULAR VOLUME 89.1 fl (80.0-96.0); MONO # 0.4 10^3/uL (0.0-0.8); MONO % 6.3 % (0.0-5.0); NEUTROPHILS # 3.2 10^3/uL (1.5-8.5); NEUTROPHILS % 51.4 % (36.0-66.0); PLATELET COUNT, AUTOMATED 230 10^3/uL (150-450); RED BLOOD COUNT 4.79 10^6/uL (4.00-5.40); WHITE BLOOD COUNT 6.2 10^3/uL (4.0-10.0)
[2019-01-06 12:59] LABS: HEMOGLOBIN A1c 6.7 %
[2019-01-06 13:18] LABS: ALBUMIN 3.7 GM/DL (3.2-5.2); ALT/SGPT 78 U/L (12-78); BILIRUBIN,TOTAL 0.5 MG/DL (0.2-1.0); BLOOD UREA NITROGEN 16 MG/DL (7-18); CALCIUM LEVEL 9.8 MG/DL (8.5-10.1); CARBON DIOXIDE LEVEL 28 MEQ/L (21-32); CHLORIDE LEVEL 107 MEQ/L (98-107); CHOLESTEROL LEVEL 224 MG/DL (<200); CHOLESTEROL RISK RATIO 5.894 (<5); CREATININE FOR GFR 0.86 MG/DL (0.55-1.30); GLOMERULAR FILTRATION RATE > 60.0 (>51); GLUCOSE, FASTING 142 MG/DL (70-100); HDL CHOLESTEROL 38 MG/DL (>40); LDL CHOLESTEROL 157 MG/DL (<100); NON-HDL-C 186 MG/DL; POTASSIUM SERUM 4.7 MEQ/L (3.5-5.1); SODIUM LEVEL 140 MEQ/L (136-145); TOTAL PROTEIN 6.7 GM/DL (6.4-8.2); TRIGLYCERIDES LEVEL 146 MG/DL (<150)
[2019-01-06 13:25] LABS: MALB URINE SIEMENS 19.3 MG/L; MAU/CREAT RATIO 18.2 MCG/MG (0.0-30.0)
[2019-01-08 10:47] LABS: TOTAL 25(OH) VITAMIN D 49.5 NG/ML (30.0-100.0)
== END ==
LOC: M WUC 08:07
PROVIDERS: ATTEND Physician Assistant Medical
DX: K21.9 Gastro-esophageal reflux disease without esophagitis (principal); E66.01 Morbid (severe) obesity due to excess calories; E78.49 Other hyperlipidemia; E55.9 Vitamin D deficiency, unspecified

== ENCOUNTER → 2019-04-20 | Outpatient (CLI) | payer OTHER ==
[2019-04-20 11:03] LABS: ALBUMIN 3.7 GM/DL (3.2-5.2); ALT/SGPT 86 U/L (12-78); BILIRUBIN,TOTAL 0.7 MG/DL (0.2-1.0); BLOOD UREA NITROGEN 10 MG/DL (7-18); CARBON DIOXIDE LEVEL 28 MEQ/L (21-32); CHLORIDE LEVEL 109 MEQ/L (98-107); CHOLESTEROL LEVEL 167 MG/DL (<200); CHOLESTEROL RISK RATIO 4.638 (<5); CREATININE FOR GFR 0.85 MG/DL (0.55-1.30); GLOMERULAR FILTRATION RATE > 60.0 (>51); GLUCOSE, FASTING 194 MG/DL (70-100); HDL CHOLESTEROL 36 MG/DL (>40); LDL CHOLESTEROL 96 MG/DL (<100); NON-HDL-C 131 MG/DL; POTASSIUM SERUM 4.9 MEQ/L (3.5-5.1); SODIUM LEVEL 140 MEQ/L (136-145); TRIGLYCERIDES LEVEL 175 MG/DL (<150)
[2019-04-20 11:55] LABS: HEMOGLOBIN A1c 7.3 %
== END ==
LOC: M WUC 08:21
PROVIDERS: ATTEND Physician Assistant Medical
DX: E78.2 Mixed hyperlipidemia (principal); E11.9 Type 2 diabetes mellitus without complications

== ENCOUNTER → 2019-08-24 | Outpatient (CLI) | payer OTHER ==
[2019-08-24 12:44] LABS: ALBUMIN 4.1 GM/DL (3.2-5.2); ALT/SGPT 86 U/L (12-78); BLOOD UREA NITROGEN 14 MG/DL (7-18); CALCIUM LEVEL 11.1 MG/DL (8.5-10.1); CARBON DIOXIDE LEVEL 27 MEQ/L (21-32); CHLORIDE LEVEL 106 MEQ/L (98-107); CREATININE FOR GFR 0.82 MG/DL (0.55-1.30); GLOMERULAR FILTRATION RATE > 60.0 (>51); GLUCOSE, FASTING 119 MG/DL (70-100); POTASSIUM SERUM 4.9 MEQ/L (3.5-5.1); SODIUM LEVEL 138 MEQ/L (136-145); TOTAL PROTEIN 7.4 GM/DL (6.4-8.2)
[2019-08-24 15:01] LABS: HEMOGLOBIN A1c 6.7 %
== END ==
LOC: M WUC 09:27
PROVIDERS: ATTEND Physician Assistant Medical
DX: E11.9 Type 2 diabetes mellitus without complications (principal)

== ENCOUNTER → 2019-08-27 | Outpatient (CLI) | payer OTHER ==
[2019-08-27 11:21] LABS: HEMOGLOBIN A1c 6.4 %
[2019-08-27 11:29] LABS: BLOOD UREA NITROGEN 15 MG/DL (7-18); CALCIUM LEVEL 10.6 MG/DL (8.5-10.1); CARBON DIOXIDE LEVEL 26 MEQ/L (21-32); CHLORIDE LEVEL 106 MEQ/L (98-107); CREATININE FOR GFR 0.84 MG/DL (0.55-1.30); GLOMERULAR FILTRATION RATE > 60.0 (>51); GLUCOSE, FASTING 119 MG/DL (70-100); POTASSIUM SERUM 4.8 MEQ/L (3.5-5.1); SODIUM LEVEL 139 MEQ/L (136-145)
[2019-08-27 11:30] LABS: ALBUMIN 4.1 GM/DL (3.2-5.2); ALT/SGPT 119 U/L (12-78); BILIRUBIN,TOTAL 0.7 MG/DL (0.2-1.0); FREE T4 1.15 NG/DL (0.76-1.46); TOTAL 25(OH) VITAMIN D 83.4 NG/ML (30.0-100.0); TOTAL PROTEIN 7.4 GM/DL (6.4-8.2)
== END ==
LOC: M WUC 08:39
PROVIDERS: ATTEND Physician Assistant Medical
DX: E83.52 Hypercalcemia (principal); E11.9 Type 2 diabetes mellitus without complications

== ENCOUNTER → 2019-09-12 | Outpatient (CLI) | payer BC, OTHER ==
--- NOTE | 2019-09-12 15:02 | REP ---
RIGHT UPPER QUADRANT ULTRASOUND: Real-time sonographic evaluation of the right upper quadrant performed. The study is limited due to patient body habitus. The patient has had a prior cholecystectomy. There is expected prominence of the common bile duct measuring 10 mm. The liver appears somewhat enlarged by a length of 21 cm. There is diffuse heterogeneous increased echotexture compatible with diffuse fibrofatty infiltration. No gross mass is seen. The pancreas is grossly unremarkable. Right kidney demonstrates no hydronephrosis with normal size 12 cm in length. IMPRESSION: Status post cholecystectomy. Expected prominence of the common bile duct 10 mm. Hepatomegaly with diffuse fibrofatty infiltration of the liver. Electronically Signed by Ángel Perera MD 09/12/2019 11:50 P
== END ==
LOC: M LRY 08:58
PROVIDERS: ATTEND Physician Assistant Medical
DX: K75.81 Nonalcoholic steatohepatitis (NASH) (principal)

== ENCOUNTER → 2019-11-23 | Outpatient (REF) | payer OTHER ==
[2019-11-23 13:20] LABS: BASO # 0.1 10^3/uL (0.0-0.2); BASO % 0.7 % (0.0-1.0); EOS # 0.1 10^3/uL (0.0-0.5); HEMATOCRIT 44.4 % (36.0-47.0); LYMPH # 2.5 10^3/uL (1.5-5.0); LYMPH % 35.1 % (24.0-44.0); MEAN CORPUSCULAR HEMOGLOBIN 30.9 pg (27.0-33.0); MEAN CORPUSCULAR HGB CONC 33.8 g/dl (32.0-36.5); MEAN CORPUSCULAR VOLUME 91.4 fl (80.0-96.0); MONO # 0.4 10^3/uL (0.0-0.8); MONO % 5.3 % (0.0-5.0); NEUTROPHILS % 56.6 % (36.0-66.0); PLATELET COUNT, AUTOMATED 225 10^3/uL (150-450); RED BLOOD COUNT 4.86 10^6/uL (4.00-5.40)
[2019-11-23 13:55] LABS: MALB URINE SIEMENS 6.3 MG/L
[2019-11-23 13:58] LABS: ALBUMIN 4.1 GM/DL (3.2-5.2); ALT/SGPT 73 U/L (12-78); BILIRUBIN,TOTAL 0.5 MG/DL (0.2-1.0); BLOOD UREA NITROGEN 14 MG/DL (7-18); CALCIUM LEVEL 10.9 MG/DL (8.8-10.2); CARBON DIOXIDE LEVEL 26 MEQ/L (21-32); CHLORIDE LEVEL 108 MEQ/L (98-107); CHOLESTEROL LEVEL 150 MG/DL (<200); CHOLESTEROL RISK RATIO 3.658 (<5); CREATININE FOR GFR 0.92 MG/DL (0.55-1.30); GLOMERULAR FILTRATION RATE > 60.0 (>45); GLUCOSE, FASTING 121 MG/DL (70-100); HDL CHOLESTEROL 41 MG/DL (>40); LDL CHOLESTEROL 86 MG/DL (<100); NON-HDL-C 109 MG/DL; POTASSIUM SERUM 5.2 MEQ/L (3.5-5.1); SODIUM LEVEL 138 MEQ/L (136-145); TOTAL PROTEIN 7.5 GM/DL (6.4-8.2); TRIGLYCERIDES LEVEL 116 MG/DL (<150)
[2019-11-23 14:00] LABS: HEMOGLOBIN A1c 5.4 %
[2019-11-23 16:15] LABS: TOTAL 25(OH) VITAMIN D 56.5 NG/ML (30.0-100.0)
== END ==
LOC: M SFHCADAM 12:30
PROVIDERS: ATTEND Physician Assistant Medical
DX: E11.9 Type 2 diabetes mellitus without complications (principal); E55.9 Vitamin D deficiency, unspecified

== ENCOUNTER → 2020-01-29 | Outpatient (CLI) | payer BC ==
--- NOTE | 2020-01-29 10:40 | REPMRS ---
Patient History The patient states she had a clinical breast exam in 01/17 Patient is postmenopausal. Family history of breast cancer at age 50 or over in maternal grandmother, colorectal cancer in maternal uncle, breast cancer at age 84 in mother, colorectal cancer at age 86 in maternal aunt. No Hormone Replacement Therapy Digital Woman Screen Mammo: January 29, 2020 - Exam #: [id number] Bilateral CC and MLO view(s) were taken. Technologist: Page Johansen, Technologist Prior study comparison: November 28, 2018, bilateral digital woman screen mammo performed at [facility]. September 30, 2017, bilateral digital woman screen mammo performed at [facility]. July 21, 2016, digital mammo diagnostic bilateral, performed at [facility]. FINDINGS: There are scattered fibroglandular densities. The Volpara volumetric breast density category is:B. There has been no change in the appearance of the mammogram from the prior studies. There is a mild amount of scattered fibroglandular density which is fairly symmetric. There is no interval development of dominant mass, architectural distortion, or grouped microcalcification suggestive of malignancy. 3-D tomosynthesis shows no additional findings. Assessment: BI-RADS/ACR category 1 mammogram. Negative Mammogram. Recommendation Breast MRI of both breasts in 6 months. Routine screening mammogram of both breasts in 1 year (for women over age 40). This patient's [facility] Lifetime Breast Cancer Risk is estimated at 20.2 %. Annual screening Breast MRI scanniing is recommended for patient's whose lifetime risk assessment is over 20%. This mammogram was interpreted with the aid of an FDA-approved computer-aided dectection system. Electronically Signed By: Shane Espana MD 01/29/20 [id number]
== END ==
LOC: M WHC 08:53
PROVIDERS: ATTEND Nurse Practitioner Family
DX: Z12.31 Encounter for screening mammogram for malignant neoplasm of breast (principal)

== ENCOUNTER → 2020-04-18 | Outpatient (CLI) | payer BC, OTHER ==
[2020-04-18 12:39] LABS: ALBUMIN 4.1 GM/DL (3.2-5.2); ALT/SGPT 80 U/L (12-78); BILIRUBIN,TOTAL 0.6 MG/DL (0.2-1.0); BLOOD UREA NITROGEN 27 MG/DL (7-18); CALCIUM LEVEL 11.2 MG/DL (8.8-10.2); CARBON DIOXIDE LEVEL 29 MEQ/L (21-32); CHLORIDE LEVEL 104 MEQ/L (98-107); CREATININE FOR GFR 0.82 MG/DL (0.55-1.30); GLOMERULAR FILTRATION RATE > 60.0 (>45); GLUCOSE, FASTING 105 MG/DL (70-100); MAGNESIUM LEVEL 1.9 MG/DL (1.8-2.4); PHOSPHORUS LEVEL 2.6 MG/DL (2.5-4.9); POTASSIUM SERUM 4.9 MEQ/L (3.5-5.1); PTH INTACT 81.1 PG/ML (18.5-88.0); SODIUM LEVEL 138 MEQ/L (136-145); TOTAL 25(OH) VITAMIN D 32.5 NG/ML (30.0-100.0); TOTAL PROTEIN 7.4 GM/DL (6.4-8.2)
== END ==
LOC: M PLALAB 09:14
PROVIDERS: ATTEND Internal Medicine Endocrinology, Diabetes & Metabolism
DX: E83.52 Hypercalcemia (principal)

== ENCOUNTER → 2020-04-21 | Outpatient (REF) | payer OTHER ==
[2020-04-21 14:17] LABS: CALCIUM, URINE 12.3 MG/DL; CREATININE, URINE 54.2 MG/DL
[2020-04-21 14:50] LABS: CALCIUM, 24 HOUR URINE 313.6 MG/24HR (42-353); CREATININE 24 HOUR, URINE 1382.1 MG/24HR (600-1800)
== END ==
LOC: M LAB REF 12:56
PROVIDERS: ATTEND Internal Medicine Endocrinology, Diabetes & Metabolism
DX: E83.52 Hypercalcemia (principal)

== ENCOUNTER → 2020-06-13 | Outpatient (REF) | payer OTHER ==
[2020-06-13 13:07] LABS: ALBUMIN 4.3 GM/DL (3.2-5.2); ALT/SGPT 90 U/L (12-78); BILIRUBIN,TOTAL 0.4 MG/DL (0.2-1.0); BLOOD UREA NITROGEN 20 MG/DL (7-18); CALCIUM LEVEL 11.1 MG/DL (8.8-10.2); CARBON DIOXIDE LEVEL 29 MEQ/L (21-32); CHLORIDE LEVEL 108 MEQ/L (98-107); CHOLESTEROL LEVEL 163 MG/DL (<200); CHOLESTEROL RISK RATIO 3.975 (<5); CREATININE FOR GFR 0.84 MG/DL (0.55-1.30); GLOMERULAR FILTRATION RATE > 60.0 (>45); GLUCOSE, FASTING 119 MG/DL (70-100); HDL CHOLESTEROL 41 MG/DL (>40); LDL CHOLESTEROL 91 MG/DL (<100); NON-HDL-C 122 MG/DL; SODIUM LEVEL 140 MEQ/L (136-145); TOTAL 25(OH) VITAMIN D 32.3 NG/ML (30.0-100.0); TOTAL PROTEIN 7.5 GM/DL (6.4-8.2); TRIGLYCERIDES LEVEL 156 MG/DL (<150)
[2020-06-13 14:15] LABS: HEMOGLOBIN A1c 5.5 %
== END ==
LOC: M SFHCADAM 09:06
PROVIDERS: ATTEND Physician Assistant Medical
DX: E11.9 Type 2 diabetes mellitus without complications (principal); E66.01 Morbid (severe) obesity due to excess calories; E55.9 Vitamin D deficiency, unspecified

== ENCOUNTER → 2020-08-07 | Outpatient (REF) | payer OTHER ==
[2020-08-07 14:10] LABS: BASO # 0.1 10^3/uL (0.0-0.2); BASO % 0.9 % (0.0-1.0); EOS # 0.2 10^3/uL (0.0-0.5); EOS % 2.6 % (0.0-3.0); HEMATOCRIT 42.4 % (36.0-47.0); HEMOGLOBIN 14.1 g/dl (12.0-15.5); LYMPH # 2.4 10^3/uL (1.5-5.0); LYMPH % 37.3 % (24.0-44.0); MEAN CORPUSCULAR HEMOGLOBIN 30.4 pg (27.0-33.0); MEAN CORPUSCULAR HGB CONC 33.3 g/dl (32.0-36.5); MEAN CORPUSCULAR VOLUME 91.4 fl (80.0-96.0); MONO # 0.5 10^3/uL (0.0-0.8); MONO % 7.3 % (2.0-8.0); NEUTROPHILS # 3.3 10^3/uL (1.5-8.5); NEUTROPHILS % 51.3 % (36.0-66.0); PLATELET COUNT, AUTOMATED 208 10^3/uL (150-450); RED BLOOD COUNT 4.64 10^6/uL (4.00-5.40); WHITE BLOOD COUNT 6.5 10^3/uL (4.0-10.0)
[2020-08-07 14:17] LABS: INR 0.88; PROTHROMBIN TIME 12.1 SECONDS (12.5-14.3)
[2020-08-07 15:00] LABS: BLOOD UREA NITROGEN 20 MG/DL (7-18); CARBON DIOXIDE LEVEL 26 MEQ/L (21-32); CHLORIDE LEVEL 107 MEQ/L (98-107); CREATININE FOR GFR 0.74 MG/DL (0.55-1.30); GLOMERULAR FILTRATION RATE > 60.0 (>45); GLUCOSE, FASTING 130 MG/DL (70-100); POTASSIUM SERUM 5.1 MEQ/L (3.5-5.1); SODIUM LEVEL 140 MEQ/L (136-145)
== END ==
LOC: M SFHCADAM 08:00
PROVIDERS: ATTEND Physician Assistant Medical
DX: Z01.818 Encounter for other preprocedural examination (principal); E21.5 Disorder of parathyroid gland, unspecified

== ENCOUNTER → 2020-12-01 | Outpatient (REF) | payer OTHER ==
[~2020-12-01] MED LIST changes: +OMEP40CA4 PO; -OMEP40CA97 PO
[2020-12-01 14:18] LABS: ALBUMIN 4.2 GM/DL (3.2-5.2); ALT/SGPT 71 U/L (12-78); BILIRUBIN,TOTAL 0.4 MG/DL (0.2-1.0); BLOOD UREA NITROGEN 17 MG/DL (7-18); CALCIUM LEVEL 9.5 MG/DL (8.8-10.2); CARBON DIOXIDE LEVEL 28 MEQ/L (21-32); CHLORIDE LEVEL 107 MEQ/L (98-107); CHOLESTEROL LEVEL 177 MG/DL (<200); CHOLESTEROL RISK RATIO 4.317 (<5); CREATININE FOR GFR 0.76 MG/DL (0.55-1.30); GLOMERULAR FILTRATION RATE > 60.0 (>45); GLUCOSE, FASTING 143 MG/DL (70-100); HDL CHOLESTEROL 41 MG/DL (>40); LDL CHOLESTEROL 104 MG/DL (<100); NON-HDL-C 136 MG/DL; POTASSIUM SERUM 4.8 MEQ/L (3.5-5.1); SODIUM LEVEL 140 MEQ/L (136-145); TOTAL 25(OH) VITAMIN D 30.1 NG/ML (30.0-100.0); TOTAL PROTEIN 7.1 GM/DL (6.4-8.2); TRIGLYCERIDES LEVEL 161 MG/DL (<150)
== END ==
LOC: M SFHCADAM 08:46
PROVIDERS: ATTEND Physician Assistant Medical
DX: E66.01 Morbid (severe) obesity due to excess calories (principal); E55.9 Vitamin D deficiency, unspecified; E11.9 Type 2 diabetes mellitus without complications

== ENCOUNTER → 2021-03-10 | Outpatient (REF) | payer OTHER | LOC: M PLALAB 08:47 | PROVIDERS: ATTEND Nurse Practitioner Women's Health | DX: Z12.4 Encounter for screening for malignant neoplasm of cervix (principal); R87.610 Atypical squamous cells of undetermined significance on cytologic smear of cervix (ASC-US) | CPT/HCPCS: 87624; G0123 ==

== ENCOUNTER → 2021-06-19 | Outpatient (CLI) | payer OTHER ==
[2021-06-19 10:20] LABS: BASO % 0.5 % (0.0-1.0); EOS # 0.2 10^3/uL (0.0-0.5); EOS % 2.8 % (0.0-3.0); HEMATOCRIT 41.2 % (36.0-47.0); HEMOGLOBIN 14.3 g/dl (12.0-15.5); LYMPH # 2.5 10^3/uL (1.5-5.0); LYMPH % 33.2 % (24.0-44.0); MEAN CORPUSCULAR HEMOGLOBIN 30.6 pg (27.0-33.0); MEAN CORPUSCULAR HGB CONC 34.7 g/dl (32.0-36.5); MONO # 0.4 10^3/uL (0.0-0.8); MONO % 5.2 % (2.0-8.0); NEUTROPHILS # 4.3 10^3/uL (1.5-8.5); NEUTROPHILS % 57.5 % (36.0-66.0); PLATELET COUNT, AUTOMATED 215 10^3/uL (150-450); RED BLOOD COUNT 4.68 10^6/uL (4.00-5.40); WHITE BLOOD COUNT 7.4 10^3/uL (4.0-10.0)
[2021-06-19 10:37] LABS: HEMOGLOBIN A1c 6.2 %
[2021-06-19 11:00] LABS: ALBUMIN 3.9 GM/DL (3.2-5.2); ALT/SGPT 101 U/L (12-78); BILIRUBIN,TOTAL 0.5 MG/DL (0.2-1.0); BLOOD UREA NITROGEN 17 MG/DL (7-18); CALCIUM LEVEL 9.3 MG/DL (8.8-10.2); CARBON DIOXIDE LEVEL 28 MEQ/L (21-32); CHLORIDE LEVEL 106 MEQ/L (98-107); CHOLESTEROL LEVEL 173 MG/DL (<200); CHOLESTEROL RISK RATIO 4.435 (<5); CREATININE FOR GFR 0.93 MG/DL (0.55-1.30); GLOMERULAR FILTRATION RATE > 60.0 (>45); GLUCOSE, FASTING 150 MG/DL (70-100); HDL CHOLESTEROL 39 MG/DL (>40); LDL CHOLESTEROL 107 MG/DL (<100); NON-HDL-C 134 MG/DL; POTASSIUM SERUM 4.3 MEQ/L (3.5-5.1); SODIUM LEVEL 139 MEQ/L (136-145); TOTAL 25(OH) VITAMIN D 27.8 NG/ML (30.0-100.0); TOTAL PROTEIN 7.2 GM/DL (6.4-8.2); TRIGLYCERIDES LEVEL 133 MG/DL (<150)
== END ==
LOC: M PLALAB 08:03
PROVIDERS: ATTEND Physician Assistant Medical
DX: E11.9 Type 2 diabetes mellitus without complications (principal); E66.01 Morbid (severe) obesity due to excess calories; E55.9 Vitamin D deficiency, unspecified; K75.81 Nonalcoholic steatohepatitis (NASH)

== ENCOUNTER → 2022-01-06 | Outpatient (REF) | payer OTHER ==
[2022-01-06 14:13] LABS: ALBUMIN 3.7 GM/DL (3.2-5.2); ALT/SGPT 62 U/L (12-78); BILIRUBIN,TOTAL 0.5 MG/DL (0.2-1.0); BLOOD UREA NITROGEN 14 MG/DL (7-18); CALCIUM LEVEL 9.2 MG/DL (8.8-10.2); CARBON DIOXIDE LEVEL 26 MEQ/L (21-32); CHLORIDE LEVEL 107 MEQ/L (98-107); CHOLESTEROL LEVEL 166 MG/DL (<200); CHOLESTEROL RISK RATIO 4.882 (<5); CREATININE FOR GFR 0.89 MG/DL (0.55-1.30); GLOMERULAR FILTRATION RATE > 60.0 (>45); GLUCOSE, FASTING 148 MG/DL (70-100); HDL CHOLESTEROL 34 MG/DL (>40); LDL CHOLESTEROL 102 MG/DL (<100); NON-HDL-C 132 MG/DL; POTASSIUM SERUM 4.8 MEQ/L (3.5-5.1); SODIUM LEVEL 138 MEQ/L (136-145); TRIGLYCERIDES LEVEL 151 MG/DL (<150)
[2022-01-06 14:19] LABS: MALB URINE SIEMENS 8.3 MG/L; MAU/CREAT RATIO 5.4 MCG/MG (0.0-30.0)
[2022-01-06 15:15] LABS: TOTAL 25(OH) VITAMIN D 34.4 NG/ML (30.0-100.0)
[2022-01-06 20:04] LABS: HEMOGLOBIN A1c 6.9 %
== END ==
LOC: M SFHCADAM 08:45
PROVIDERS: ATTEND Physician Assistant Medical
DX: E11.9 Type 2 diabetes mellitus without complications (principal); K75.81 Nonalcoholic steatohepatitis (NASH); E78.2 Mixed hyperlipidemia; E89.2 Postprocedural hypoparathyroidism

== ENCOUNTER → 2022-01-06 | Outpatient (CLI) | payer BC, OTHER | LOC: M RAD 07:41 | PROVIDERS: ATTEND Physician Assistant Medical | DX: K75.81 Nonalcoholic steatohepatitis (NASH) (principal); Z90.49 Acquired absence of other specified parts of digestive tract ==

== ENCOUNTER → 2022-05-31 | Outpatient (REF) | payer OTHER ==
[2022-05-31 13:08] LABS: BASO # 0.1 10^3/uL (0.0-0.2); BASO % 0.6 % (0.0-1.0); EOS # 0.2 10^3/uL (0.0-0.5); EOS % 2.3 % (0.0-3.0); HEMATOCRIT 41.7 % (36.0-47.0); HEMOGLOBIN 14.6 g/dl (12.0-15.5); LYMPH # 2.9 10^3/uL (1.5-5.0); LYMPH % 35.1 % (24.0-44.0); MEAN CORPUSCULAR HEMOGLOBIN 31.3 pg (27.0-33.0); MEAN CORPUSCULAR VOLUME 89.3 fl (80.0-96.0); MONO # 0.5 10^3/uL (0.0-0.8); MONO % 5.4 % (2.0-8.0); NEUTROPHILS # 4.6 10^3/uL (1.5-8.5); NEUTROPHILS % 56.1 % (36.0-66.0); PLATELET COUNT, AUTOMATED 244 10^3/uL (150-450); RED BLOOD COUNT 4.67 10^6/uL (4.00-5.40); WHITE BLOOD COUNT 8.3 10^3/uL (4.0-10.0)
[2022-05-31 13:39] LABS: CREATININE, URINE 51.6 MG/DL; MALB URINE SIEMENS < 3.0 MG/L; MAU/CREAT RATIO 5.8 MCG/MG (0.0-30.0)
[2022-05-31 14:06] LABS: ALBUMIN 3.9 G/DL (3.2-5.2); ALKALINE PHOSPHATASE 74 U/L (46-116); ALT/SGPT 63 U/L (7.0-40); AST/SGOT 65 U/L (<34); BILIRUBIN,TOTAL 0.5 MG/DL (0.3-1.2); BLOOD UREA NITROGEN 16 MG/DL (9-23); CALCIUM LEVEL 8.9 MG/DL (8.3-10.6); CARBON DIOXIDE LEVEL 24 MMOL/L (20-31); CHLORIDE LEVEL 105 MMOL/L (98-107); CHOLESTEROL LEVEL 139 MG/DL (<200); CHOLESTEROL RISK RATIO 3.85 (<5); GLOMERULAR FILTRATION RATE > 60.0 (>45); GLUCOSE, FASTING 210 MG/DL (74-106); HDL CHOLESTEROL 36.1 MG/DL (>40); NON-HDL-C 102.9 MG/DL; SODIUM LEVEL 136 MMOL/L (136-145)
[2022-05-31 14:37] LABS: HEMOGLOBIN A1c 8.2 % (4.0-6.0)
[2022-05-31 19:01] LABS: LDL CHOLESTEROL 71.1 MG/DL (<100); TOTAL PROTEIN 7.2 G/DL (5.7-8.2); TRIGLYCERIDES LEVEL 159 MG/DL (<150)
[2022-05-31 19:05] LABS: THYROID STIMULATING HORMONE 2.585 uIU/ML (0.55-4.78); TOTAL 25(OH) VITAMIN D 39.6 NG/ML (20.0-100.0)
== END ==
LOC: M SFHCADAM 11:29
PROVIDERS: ATTEND Physician Assistant Medical
DX: E11.9 Type 2 diabetes mellitus without complications (principal); E66.01 Morbid (severe) obesity due to excess calories; E55.9 Vitamin D deficiency, unspecified; E78.2 Mixed hyperlipidemia

== ENCOUNTER → 2022-07-14 | Outpatient (CLI) | payer BC, OTHER | LOC: M WHC 07:25 | PROVIDERS: ATTEND Nurse Practitioner Family | DX: Z12.31 Encounter for screening mammogram for malignant neoplasm of breast (principal) ==

== ENCOUNTER → 2022-07-14 | Outpatient (REF) | payer OTHER, BC | LOC: M SFHCWAGY 10:15 | PROVIDERS: ATTEND Nurse Practitioner Family | DX: Z12.4 Encounter for screening for malignant neoplasm of cervix (principal); Z77.9 Other contact with and (suspected) exposures hazardous to health | CPT/HCPCS: 87624; G0123 ==

== ENCOUNTER → 2022-08-17 | Outpatient (REF) | payer OTHER ==
[2022-08-17 13:28] LABS: BASO % 0.6 % (0.0-1.0); EOS # 0.2 10^3/uL (0.0-0.5); EOS % 3.3 % (0.0-3.0); HEMOGLOBIN 13.4 g/dl (12.0-15.5); LYMPH # 2.8 10^3/uL (1.5-5.0); MEAN CORPUSCULAR HEMOGLOBIN 30.7 pg (27.0-33.0); MEAN CORPUSCULAR HGB CONC 33.5 g/dl (32.0-36.5); MEAN CORPUSCULAR VOLUME 91.5 fl (80.0-96.0); MONO # 0.4 10^3/uL (0.0-0.8); MONO % 5.9 % (2.0-8.0); NEUTROPHILS # 3.8 10^3/uL (1.5-8.5); NEUTROPHILS % 51.8 % (36.0-66.0); PLATELET COUNT, AUTOMATED 221 10^3/uL (150-450); RED BLOOD COUNT 4.37 10^6/uL (4.00-5.40); WHITE BLOOD COUNT 7.3 10^3/uL (4.0-10.0)
[2022-08-17 13:36] LABS: HEMOGLOBIN A1c 5.6 % (4.0-6.0)
[2022-08-17 13:51] LABS: CREATININE, URINE 153.9 MG/DL; MAU/CREAT RATIO 1.9 MCG/MG (0.0-30.0)
[2022-08-17 13:57] LABS: ALBUMIN 3.9 G/DL (3.2-5.2); ALKALINE PHOSPHATASE 70 U/L (46-116); ALT/SGPT 41 U/L (7.0-40); AST/SGOT 27 U/L (<34); BILIRUBIN,TOTAL 0.4 MG/DL (0.3-1.2); BLOOD UREA NITROGEN 19 MG/DL (9-23); CALCIUM LEVEL 8.9 MG/DL (8.3-10.6); CARBON DIOXIDE LEVEL 26 MMOL/L (20-31); CHLORIDE LEVEL 108 MMOL/L (98-107); CHOLESTEROL LEVEL 128 MG/DL (<200); CHOLESTEROL RISK RATIO 3.46 (<5); CREATININE FOR GFR 0.78 MG/DL (0.55-1.30); GLOMERULAR FILTRATION RATE > 60.0 (>45); GLUCOSE, FASTING 91 MG/DL (74-106); HDL CHOLESTEROL 36.9 MG/DL (>40); LDL CHOLESTEROL 64.7 MG/DL (<100); NON-HDL-C 91.1 MG/DL; POTASSIUM SERUM 4.4 MMOL/L (3.5-5.1); SODIUM LEVEL 142 MMOL/L (136-145); THYROID STIMULATING HORMONE 1.535 uIU/ML (0.55-4.78); TOTAL 25(OH) VITAMIN D 38.1 NG/ML (20.0-100.0); TOTAL PROTEIN 6.6 G/DL (5.7-8.2); TRIGLYCERIDES LEVEL 132 MG/DL (<150)
== END ==
LOC: M SFHCADAM 08:37
PROVIDERS: ATTEND Physician Assistant Medical
DX: E66.01 Morbid (severe) obesity due to excess calories (principal); K21.9 Gastro-esophageal reflux disease without esophagitis; K75.81 Nonalcoholic steatohepatitis (NASH); E11.9 Type 2 diabetes mellitus without complications; E89.2 Postprocedural hypoparathyroidism

== ENCOUNTER → 2022-12-25 | Outpatient (CLI) | payer BC, OTHER | LOC: M EKG 08:22 | PROVIDERS: ATTEND Orthopaedic Surgery | DX: M79.641 Pain in right hand (principal); M79.642 Pain in left hand; R94.31 Abnormal electrocardiogram [ECG] [EKG] ==

== ENCOUNTER → 2023-07-19 | Outpatient (CLI) | payer BC | LOC: M WHC 07:25 | PROVIDERS: ATTEND Nurse Practitioner Family | DX: Z12.31 Encounter for screening mammogram for malignant neoplasm of breast (principal) ==

== ENCOUNTER → 2023-08-29 | Outpatient (REF) | payer BC ==
[2023-08-29 13:43] LABS: BASO # 0.1 10^3/uL (0.0-0.2); BASO % 0.8 % (0.0-1.0); EOS # 0.2 10^3/uL (0.0-0.5); EOS % 2.7 % (0.0-3.0); HEMATOCRIT 41.8 % (36.0-47.0); HEMOGLOBIN 13.9 g/dl (12.0-15.5); LYMPH # 2.7 10^3/uL (1.5-5.0); LYMPH % 31.1 % (24.0-44.0); MEAN CORPUSCULAR HEMOGLOBIN 29.6 pg (27.0-33.0); MEAN CORPUSCULAR HGB CONC 33.3 g/dl (32.0-36.5); MEAN CORPUSCULAR VOLUME 88.9 fl (80.0-96.0); MONO # 0.5 10^3/uL (0.0-0.8); MONO % 5.6 % (2.0-8.0); NEUTROPHILS # 5.1 10^3/uL (1.5-8.5); NEUTROPHILS % 59.2 % (36.0-66.0); PLATELET COUNT, AUTOMATED 233 10^3/uL (150-450); WHITE BLOOD COUNT 8.6 10^3/uL (4.0-10.0)
[2023-08-29 14:00] LABS: CREATININE, URINE 173.6 MG/DL
[2023-08-29 14:01] LABS: ALBUMIN 3.9 G/DL (3.2-5.2); ALKALINE PHOSPHATASE 101 U/L (46-116); ALT/SGPT 60 U/L (7.0-40); AST/SGOT 39 U/L (<34); BILIRUBIN,TOTAL 0.5 MG/DL (0.3-1.2); BLOOD UREA NITROGEN 23 MG/DL (9-23); CALCIUM LEVEL 8.9 MG/DL (8.3-10.6); CARBON DIOXIDE LEVEL 27 MMOL/L (20-31); CHLORIDE LEVEL 105 MMOL/L (98-107); CHOLESTEROL LEVEL 179 MG/DL (<200); CHOLESTEROL RISK RATIO 4.54 (<5); CREATININE FOR GFR 0.82 MG/DL (0.55-1.30); GLOMERULAR FILTRATION RATE > 60.0 (>45); GLUCOSE, FASTING 230 MG/DL (74-106); HDL CHOLESTEROL 39.4 MG/DL (>40); MAU/CREAT RATIO 8.6 MCG/MG (0.0-30.0); NON-HDL-C 139.6 MG/DL; POTASSIUM SERUM 5.1 MMOL/L (3.5-5.1); SODIUM LEVEL 138 MMOL/L (136-145); TRIGLYCERIDES LEVEL 163 MG/DL (<150)
[2023-08-29 14:03] LABS: THYROID STIMULATING HORMONE 1.911 uIU/ML (0.55-4.78)
[2023-08-29 14:04] LABS: TOTAL 25(OH) VITAMIN D 35.2 NG/ML (20.0-100.0)
[2023-08-29 14:33] LABS: HEMOGLOBIN A1c 6.7 % (4.0-6.0)
== END ==
LOC: M SFHCADAM 08:05
PROVIDERS: ATTEND Physician Assistant Medical
DX: E11.9 Type 2 diabetes mellitus without complications (principal); E66.01 Morbid (severe) obesity due to excess calories; E55.9 Vitamin D deficiency, unspecified; K21.9 Gastro-esophageal reflux disease without esophagitis

== ENCOUNTER → 2024-02-03 | Outpatient (CLI) | payer BC | LOC: M RAD 07:46 | PROVIDERS: ATTEND Physician Assistant Medical | DX: K75.81 Nonalcoholic steatohepatitis (NASH) (principal); Z90.49 Acquired absence of other specified parts of digestive tract ==

== ENCOUNTER → 2024-04-10 | Outpatient (CLI) | payer BC ==
[2024-04-10 09:50] LABS: HEMOGLOBIN A1c 6.5 % (4.0-6.0)
[2024-04-10 10:19] LABS: THYROID STIMULATING HORMONE 2.023 uIU/ML (0.55-4.78); TOTAL 25(OH) VITAMIN D 32.7 NG/ML (20.0-100.0)
[2024-04-10 10:21] LABS: ALBUMIN 3.9 G/DL (3.2-5.2); ALKALINE PHOSPHATASE 78 U/L (35-104); ALT/SGPT 44 U/L (7.0-40); AST/SGOT 32 U/L (<34); BILIRUBIN,TOTAL 0.5 MG/DL (0.3-1.2); BLOOD UREA NITROGEN 19 MG/DL (9-23); CALCIUM LEVEL 9.4 MG/DL (8.3-10.6); CARBON DIOXIDE LEVEL 28 MMOL/L (20-31); CHLORIDE LEVEL 106 MMOL/L (98-107); CHOLESTEROL LEVEL 170 MG/DL (<200); CHOLESTEROL RISK RATIO 4.26 (<5); CREATININE FOR GFR 0.75 MG/DL (0.55-1.30); GLOMERULAR FILTRATION RATE > 60.0 (>45); GLUCOSE, FASTING 199 MG/DL (74-106); HDL CHOLESTEROL 39.9 MG/DL (>40); LDL CHOLESTEROL 104.7 MG/DL (<100); NON-HDL-C 130.1 MG/DL; POTASSIUM SERUM 4.6 MMOL/L (3.5-5.1); SODIUM LEVEL 141 MMOL/L (136-145); TOTAL PROTEIN 7.6 G/DL (5.7-8.2); TRIGLYCERIDES LEVEL 127 MG/DL (<150)
== END ==
LOC: M LAB 08:59
PROVIDERS: ATTEND Physician Assistant Medical
DX: E11.9 Type 2 diabetes mellitus without complications (principal); E66.01 Morbid (severe) obesity due to excess calories; E55.9 Vitamin D deficiency, unspecified; K75.81 Nonalcoholic steatohepatitis (NASH); E78.2 Mixed hyperlipidemia; E21.3 Hyperparathyroidism, unspecified; Z68.39 Body mass index [BMI] 39.0-39.9, adult

== ENCOUNTER → 2024-04-12 | Outpatient (REF) | payer OTHER | LOC: M SFHCADAM 17:13 | PROVIDERS: ATTEND Physician Assistant Medical | DX: J03.90 Acute tonsillitis, unspecified (principal) ==

== ENCOUNTER → 2024-09-26 | Outpatient (CLI) | payer BC | LOC: M WHC 14:36 | PROVIDERS: ATTEND Nurse Practitioner Family | DX: Z12.31 Encounter for screening mammogram for malignant neoplasm of breast (principal); R92.313 Mammographic fatty tissue density, bilateral breasts ==

== ENCOUNTER → 2024-09-26 | Outpatient (REF) | payer BC | LOC: M SFHCWAGY 11:25 | PROVIDERS: ATTEND Nurse Practitioner Family | DX: Z12.4 Encounter for screening for malignant neoplasm of cervix (principal); Z11.51 Encounter for screening for human papillomavirus (HPV) ==

== ENCOUNTER → 2024-12-03 | Outpatient (REF) | payer BC ==
[2024-12-03 13:50] LABS: BASO # 0.1 10^3/uL (0.0-0.2); BASO % 0.8 % (0.0-1.0); EOS # 0.2 10^3/uL (0.0-0.5); EOS % 2.8 % (0.0-3.0); LYMPH # 2.8 10^3/uL (1.5-5.0); LYMPH % 35.6 % (24.0-44.0); MONO # 0.5 10^3/uL (0.0-0.8); MONO % 6.0 % (2.0-8.0); NEUTROPHILS # 4.3 10^3/uL (1.5-8.5); NEUTROPHILS % 54.7 % (36.0-66.0); PLATELET COUNT, AUTOMATED 226 10^3/uL (150-450)
[2024-12-03 13:58] LABS: ALT/SGPT 55.0 U/L (7.0-40); AST/SGOT 43.0 U/L (<34); CALCIUM LEVEL 9.0 MG/DL (8.3-10.6); CARBON DIOXIDE LEVEL 28.0 MMOL/L (20-31); CHLORIDE LEVEL 104.0 MMOL/L (98-107); CHOLESTEROL LEVEL 158.0 MG/DL (<200); CHOLESTEROL RISK RATIO 3.88 (<5); CREATININE FOR GFR 0.84 MG/DL (0.55-1.30); FREE T4 1.11 NG/DL (0.89-1.76); GLOMERULAR FILTRATION RATE 77.1 (>45); LDL CHOLESTEROL 91.3 MG/DL (<100); NON-HDL-C 117.3 MG/DL; POTASSIUM SERUM 4.5 MMOL/L (3.5-5.1); SODIUM LEVEL 140.0 MMOL/L (136-145); TOTAL 25(OH) VITAMIN D 33.1 NG/ML (20.0-100.0); TRIGLYCERIDES LEVEL 130.0 MG/DL (<150)
[2024-12-03 14:15] LABS: ESTIMATED AVERAGE GLUCOSE 128.0 MG/DL (60-110)
[2024-12-03 14:34] LABS: CREATININE, URINE 121.9 MG/DL; MALB URINE SIEMENS < 3.0 MG/L
== END ==
LOC: M SFHCADAM 08:29
PROVIDERS: ATTEND Physician Assistant Medical
DX: E11.9 Type 2 diabetes mellitus without complications (principal); E55.9 Vitamin D deficiency, unspecified; K75.81 Nonalcoholic steatohepatitis (NASH); E78.2 Mixed hyperlipidemia